=== PATIENT | male | born 1970 | race African-American/Black ===

== ENCOUNTER 2017-05-15 11:48 | Emergency (ER) | payer OTHER ==
[2017-05-15 12:01] VITALS: BMI 21.9
--- NOTE | 2017-05-15 12:52 | DR.GENAD ---
HPI - PCP Primary Care Physician: [facility] DOCTOR - HPI Comment HPI Comment: PAIN WORSE TODAY. VOMIT AFTER EATING. - Complaint/Symptoms Chief Complaint Doctors Comments: PATIENT IS HAVING LUQ ABDOMINAL PAIN WITH NAUSEA AND VOMITING TIMES 4 DAYS. Chief Complaint:: PATIENT STATED THAT HE HAS BEEN HAVING LEFT SIDED ABD. PAIN TIMES 4 DAYS. HE STATED THAT EVERYTIME HE EATS ANYTHING THAT IT JUST COMES BACK UP. OPERATORS TEACHER FROM [facility] STATED THAT HE DID A DIP STICK UA ON PATIENT AND IT HAD LARGE AMOUNT OF KETONES AND PROTEIN. HE ALSO STATED THAT PATINT BLOOD SUGAR WAS 66 WHEN CHECKED. - Nurses notes reviewed Nurses Notes Review: Yes - Source History Provided: Patient - Mode of Arrival Mode of Arrival: Ambulatory - Timing Onset of Chief Complaint: 05/11/17 Came on: Suddenly - Duration Duration: Constant Duration: Days - Severity Severity: Moderate PMH - PMH Past Medical History: Yes Past Medical History Comment: PATIENT STATED HE HAS SICKLE CELL Past Surgical History: No - Family History History of Family Medical Conditions: No - Social History Does patient currently use any type of tobacco product: No Have you used tobacco products in the last 12 months: No Type of Tobacco Use: None Does any household member use tobacco: No Alcohol Use: None Do you use any recreational Drugs:: No Lives With: Other Lives Where: [facility] - infectious screening In the last 2 months have you had wt loss of >10#?: NO Have you had fever, night sweats or hemotysis?: No Have you traveled outside the country in the last 6 months?: No Isolation: Standard ROS - Review of Systems Constitutional: Weakness, Fatigue. negative: Chills, Fever Eyes: negative: Eye Pain, Discharge ENTM: negative: Ear Pain, Nose Discharge, Nose Congestion, Throat Pain Respiratoy: No Symptoms Reported. negative: Productive Cough, Non-Productive Cough, Short of Breath, Wheezing, Hemoptysis Cardiovascular: Chest Pain Gastrointestinal/Abdominal: Abdominal Pain, Nausea, Vomiting. negative: Diarrhea Genitourinary: No Symptoms Reported. negative: Dysuria, Frequency, Hematuria Neurological: Weakness. negative: Headache, Dizziness Musculoskeletal: No Symptoms Reported Integumentary: No Symptoms Reported Hematologic/Lymphatic: No Symptoms Reported Endocrine: No Symptoms Reported All Other Systems: Reviewed and Negative PE - Vital Signs Vitals: Temperature 98.0 F Pulse Rate [Apical] 79 Pulse Rate 66 Respiratory Rate 18 Blood Pressure [Right Arm] 115/70 Blood Pressure 173/102 O2 Sat by Pulse Oximetry 100 - General Limitations: No Limitations General Appearance: Alert - Head Head Exam: Normal Inspection - Eyes Eye exam: Normal Appearance - ENT ENT Exam: Normal External Ear Exam External Ear Exam: Normal External Inspection TM/Canal Exam: Bilateral Normal Nose Exam: Normal Nose Exam Mouth Exam: Normal Inspection Throat Exam: Normal Inspection - Neck Neck Exam: Normal Inspection - Chest Chest Inspection: Symmetric Chest Wall Rise - Respiratory Respiratory Exam: Normal Lung Sounds Bilat Respiratory Exam: Bilateral Clear to Auscultation - Cardiovascular Cardiovascular Exam: Regular Rate, Normal Rhythm, Normal Heart Sounds - Abdominal Exam Abdominal Exam: Normal Bowel Sounds, Soft. negative: Tenderness - Extremities Extremities Exam: Normal Inspection - Back Back Exam: Normal Inspection - Neurologic Neurological Exam: Alert, Oriented X3 - Psychiatric Psychiatric Exam: Normal Affect, Normal Mood - Skin Skin Exam: Normal Color MDM - Additional Information Additional Information Obtained From: Rug Weaver (INSIDE SALES MANAGER PRESENT WITH PT IN ED.) - Differential Diagnosis Differential Diagnosis: ABDOMINAL PAIN, BOWEL OBSTRUCTION, PANCREATITIS, KIDNEY STONE, UTI Course - Treatment Treatment: SEE ORDERS. MEDS PER ORDERS. NAUSEA IMPROVING. 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 TRY TO FIX, NO SUCCESS. LAB SENT TO [facility]. - Reevaluation 1st: Improved - Education/Counseling Education/Counseling: Patient, Education Educated On: Treatment, Diagnosis, Needs for Follow Up, Other (INSIDE SALES MANAGER) ROR - Labs Reviewed Laboratory Results Reviewed?: Yes Result Diagrams: 05/15/17 13:20 05/15/17 13:20 Laboratory: WBC 4.9 X10^3/uL (3.6-10.0) 05/15/17 13:20 RBC 4.89 X10^6/uL (4.7-6.0) 05/15/17 13:20 Hgb 13.2 g/dL (13.5-18.0) L 05/15/17 13:20 Hct 39.6 % (42.0-54.0) L 05/15/17 13:20 MCV 81.0 fL (80.0-100.0) 05/15/17 13:20 MCH 27.0 pg (27.0-34.0) 05/15/17 13:20 MCHC 33.3 g/dL (33.0-35.0) 05/15/17 13:20 RDW 14.0 % (11.6-16.5) 05/15/17 13:20 Plt Count 256 X10^3/uL (150.0-450.0) 05/15/17 13:20 MPV 8.1 fL (7.4-11.0) 05/15/17 13:20 Neut % 64.5 % (42.0-75.0) 05/15/17 13:20 Lymph % 25.1 % (21.0-51.0) 05/15/17 13:20 [place] % 6.9 % (0.0-13.0) 05/15/17 13:20 Eos % 2.7 % (0.9-2.9) 05/15/17 13:20 Baso % 0.8 % (0.2-1.0) 05/15/17 13:20 Neut # 3.1 x10^3/uL (2.2-4.8) 05/15/17 13:20 Lymph # 1.2 X10^3/uL (1.3-2.9) L 05/15/17 13:20 [place] # 0.3 x10^3/uL (0.3-0.8) 05/15/17 13:20 Eos # 0.1 x10^3/uL (0.0-0.2) 05/15/17 13:20 Baso # 0.0 X10^3/uL (0.0-0.1) 05/15/17 13:20 Absolute Nucleated RBC 0.0 /100WBC 05/15/17 13:20 Sodium 141 mmol/L (136-145) 05/15/17 13:20 Corrected Sodium TNP 05/15/17 13:20 Potassium 3.6 mmol/L (3.5-5.1) 05/15/17 13:20 Chloride 101 mmol/L (98-107) 05/15/17 13:20 Carbon Dioxide 28.2 mmol/L (21-32) 05/15/17 13:20 BUN 21 mg/dL (7-18) H 05/15/17 13:20 Creatinine 1.26 mg/dL (0.70-1.30) 05/15/17 13:20 Est GFR (MDRD) Af Amer > 60 (>60) 05/15/17 13:20 Est GFR (MDRD) Non-Af > 60 (>60) 05/15/17 13:20 Glucose 80 mg/dL (65-99) 05/15/17 13:20 Hemoglobin A1c 6.1 % (4.5-6.2) 05/15/17 13:20 Calcium 9.3 mg/dL (8.5-10.1) 05/15/17 13:20 Corrected Calcium TNP 05/15/17 13:20 Total Bilirubin 0.40 mg/dL (0.2-1.0) 05/15/17 13:20 AST 20 Units/L (15-37) 05/15/17 13:20 ALT 16 Units/L (12-78) 05/15/17 13:20 Alkaline Phosphatase 94 Units/L (46-116) 05/15/17 13:20 Total Protein 8.3 g/dL (6.4-8.2) H 05/15/17 13:20 Albumin 3.8 g/dL (3.4-5.0) 05/15/17 13:20 Globulin 4.5 g/dL (2.5-4.5) 05/15/17 13:20 Albumin/Globulin Ratio 0.8 Ratio (1.1-2.1) L 05/15/17 13:20 Amylase 85 Units/L (25-115) 05/15/17 13:20 Lipase 132 Units/L (73-393) 05/15/17 13:20 Specimen Type Clean catch urine 05/15/17 15:40 Urine Color Dark yellow (YELLOW) 05/15/17 15:40 Urine Appearance Slightly hazy (CLEAR) 05/15/17 15:40 Urine pH 6.5 (5.0 - 8.0) 05/15/17 15:40 Ur Specific [place] 1.015 (1.000-1.030) 05/15/17 15:40 Urine Protein 1+ (NEGATIVE) 05/15/17 15:40 Urine Glucose (UA) Negative (NEGATIVE) 05/15/17 15:40 Urine Ketones 4+ (NEGATIVE) 05/15/17 15:40 Urine Occult Blood 5+ (NEGATIVE) 05/15/17 15:40 Urine Nitrite Negative (NEGATIVE) 05/15/17 15:40 Urine Bilirubin Negative (NEGATIVE) 05/15/17 15:40 Urine Urobilinogen Normal (NORMAL) 05/15/17 15:40 Ur Leukocyte Esterase 1+ (NEGATIVE) 05/15/17 15:40 Urine RBC 13-15 /HPF (NEGATIVE) 05/15/17 15:40 Urine WBC 1-3 /HPF (NEGATIVE) 05/15/17 15:40 Ur Squamous Epith Cells Rare /HPF (NEGATIVE) 05/15/17 15:40 Urine Bacteria Trace /HPF (NEGATIVE) 05/15/17 15:40 Urine Mucus Moderate /HPF (NEGATIVE) 05/15/17 15:40 Ur Culture Indicated? No/not indicated 05/15/17 15:40 Salicylates < 2.8 mg/dL (2.8-20) L 05/15/17 13:20 Acetone, Semi-Quant Negative (NEGATIVE) 05/15/17 13:20 - XRAY XRAY Interpreted by: Radiologist XRAY Findings: REPORT DISCUSS WITH PATIENT. - Diagnosis Discharge Problem: Ketonuria Abdominal pain Qualifiers: Abdominal location: left upper quadrant Qualified Code(s): R10.12 - Left upper quadrant pain Hematuria Qualifiers: Hematuria type: unspecified type Qualified Code(s): R31.9 - Hematuria, unspecified Nausea & vomiting Qualifiers: Vomiting type: bilious vomiting Qualified Code(s): R11.14 - Bilious vomiting - Discharge Plan Disposition: 01 HOME, SELF-CARE Condition: Stable Prescriptions: Ondansetron [Zofran ODT 8 mg] 8 mg PO Q8H PRN #15 tab PRN Reason: Nausea/Vomiting Ranitidine HCl [ZANTAC TAB 150 MG *] 150 mg PO BID #60 tab - Follow ups/Referrals [facility] - 05/16/17 - Instructions Instructions: Abdominal Pain, Adult, [id number] Additional Instructions: RETURN TO ED IF WORSE. YOU ALSO HAVE BLOOD AND KETONES IN URINE. UROLOGY CONSULT RECOMMENDED. REPEAT URINALYSIS TO ENSURE KETONES ARE IMPROVE.
[2017-05-15] MEDS ORDERED: ZOFRAN INJ 4 MG VIAL IVP ONE ×2 (12:53→18:59)
[2017-05-15] MEDS ORDERED: NS 1000 ML 1,000 ML IV ONE (12:53)
[2017-05-15] MEDS ORDERED: PEPCID 20 MG IV PREMIX* 20 MG/50 ML BAG IV ONE ×2 (12:53→13:02)
[2017-05-15] MEDS ORDERED: ZOFRAN INJ 4 MG VIAL ONE ×2 (13:02→19:11)
[2017-05-15] MEDS ORDERED: NS 1000 ML 1,000 ML ONE (13:02)
[2017-05-15 13:30] LABS: BASOPHILS % (AUTO) 0.8 % (0.2-1.0); EOSINOPHILS # (AUTO) 0.1 x10^3/uL (0.0-0.2); EOSINOPHILS % (AUTO) 2.7 % (0.9-2.9); HEMATOCRIT 39.6 % (42.0-54.0); HEMOGLOBIN 13.2 g/dL (13.5-18.0); LYMPHOCYTES # (AUTO) 1.2 X10^3/uL (1.3-2.9); LYMPHOCYTES % (AUTO) 25.1 % (21.0-51.0); MEAN CORPUSCULAR HGB CONC 33.3 g/dL (33.0-35.0); MEAN PLATELET VOLUME 8.1 fL (7.4-11.0); MONOCYTES # (AUTO) 0.3 x10^3/uL (0.3-0.8); MONOCYTES % (AUTO) 6.9 % (0.0-13.0); NEUTROPHILS # (AUTO) 3.1 x10^3/uL (2.2-4.8); NEUTROPHILS % (AUTO) 64.5 % (42.0-75.0); PLATELET COUNT 256 X10^3/uL (150.0-450.0); RED BLOOD COUNT 4.89 X10^6/uL (4.7-6.0); WHITE BLOOD COUNT 4.9 X10^3/uL (3.6-10.0)
[2017-05-15 13:33] LABS: BLOOD UREA NITROGEN 21 mg/dL (7-18); CALCIUM 9.3 mg/dL (8.5-10.1); CARBON DIOXIDE 28.2 mmol/L (21-32); CHLORIDE 101 mmol/L (98-107); CREATININE 1.26 mg/dL (0.70-1.30); SODIUM 141 mmol/L (136-145); eGFR BLACK RACES > 60 (>60); eGFR NON BLACK RACES > 60 (>60)
--- NOTE | 2017-05-15 14:40 | CT ---
HISTORY: Abdominal pain, left flank pain Study: CT abdomen and pelvis without contrast Comparison: None Technique: Multiple axial images of the abdomen and pelvis were obtained without IV contrast. Dose reduction t echniques including Automated Exposure Control (AEC) and adjustment of mA and kV were utilized. Findings: Please note evaluation is limited without use of IV contrast. The visualized lung bases are clear. The liver, spleen, pancreas, kidneys, and adrenal glands are un remarkable in their unenhanced CT appearance. The gallbladder is normal. No renal calculi or obstruct delia uropathy identified. No free intraperitoneal air. No evidence of intestinal obstruction or inflammation. The visualized po rtions of the appendix are normal. No free fluid is seen. The soft tissues and osseous structures are unremarkable. The vascular structures are unremarkable. N o pathologically enlarged lymph nodes are identified. Normal urinary bladder. IMPRESSION: 1.Negative noncontrast CT of the abdomen and pelvis. Reported By:
[2017-05-15 15:53] LABS: BILIRUBIN,URINE NEGATIVE (NEGATIVE); BLOOD/HEMOGLOBIN,URINE 5+ (NEGATIVE); GLUCOSE, URINE NEGATIVE (NEGATIVE); KETONES,URINE 4+ (NEGATIVE); LEUKOCYTE ESTERASE ,URINE 1+ (NEGATIVE); NITRITES,URINE NEGATIVE (NEGATIVE); PH,URINE 6.5 (5.0 - 8.0); PROTEIN,URINE 1+ (NEGATIVE); UROBILINOGEN,URINE NORMAL (NORMAL)
[2017-05-15 16:01] LABS: APPEARANCE,URINE SLIGHTLY HAZY (CLEAR); BACTERIA,URINE TRACE /HPF (NEGATIVE); COLOR,URINE DARK YELLOW (YELLOW); MUCUS,URINE MODERATE /HPF (NEGATIVE); RBC,URINE 13-15 /HPF (NEGATIVE); SQUAMOUS EPITHELIAL CELL,UR RARE /HPF (NEGATIVE)
[2017-05-15 16:51] LABS: SALICYLATE < 2.8 mg/dL (2.8-20)
[2017-05-15 16:53] LABS: SERUM ACETONE NEGATIVE (NEGATIVE)
[2017-05-15 16:59] LABS: HEMOGLOBIN A1C 6.1 % (4.5-6.2)
[2017-05-15] MEDS ORDERED: PROTONIX INJ 40 MG VIAL IVP ONE (18:59)
[2017-05-15] MEDS ORDERED: PROTONIX INJ 40 MG VIAL ONE (19:12)
[2017-05-15 19:22] VITALS: BP 115/70
[2017-05-15 19:22] LABS: ALANINE AMINOTRANSFERASE 16 Units/L (12-78); ALBUMIN 3.8 g/dL (3.4-5.0); ALKALINE PHOSPHATASE 94 Units/L (46-116); ASPARTATE AMINO TRANSFERASE 20 Units/L (15-37); TOTAL PROTEIN 8.3 g/dL (6.4-8.2)
[2017-05-15 19:23] LABS: AMYLASE 85 Units/L (25-115); LIPASE 132 Units/L (73-393)
== END 2017-05-15 19:38 | disposition home or self-care (01) ==
LOC: ER 11:55
DX: R10.12 Left upper quadrant pain (principal); R82.4 Acetonuria; R31.9 Hematuria, unspecified; R11.14 Bilious vomiting
CPT/HCPCS: 36415; 74176; 80053; 80307; 81001; 82009; 82150; 83021; 83036; 83690; 85025; 96365; 96367; 96374; 96375; 99283; A4222; C9113; S0028; G6038; J2405